=== PATIENT | female | born 1985 | race African-American/Black ===

== ENCOUNTER 2021-08-26 08:33 | Day surgery (SDC) | payer OTHER ==
[~2021-08-26] VITALS: Ht 165.1 cm; Wt 101.7 kg
[~2021-08-26 08:33] MED LIST: ACETAMINOPHEN 650 MG SUPP PR ONE; CLAR5TAB11 PO; CVS1CAP2 PO; CVS5000S2 PO; L-LY500T14 PO; LIDOCAINE 1% MDV 20ML VIAL SQ PRN; LR 1,000 ML IV ONE; VITMTA PO
[2021-08-26 09:17] LABS: HEMATOCRIT 39.9 % (36.0-47.0); HEMOGLOBIN 13.4 g/dl (12.0-15.5); MEAN CORPUSCULAR HEMOGLOBIN 31.8 pg (27.0-33.0); MEAN CORPUSCULAR HGB CONC 33.6 g/dl (32.0-36.5); MEAN CORPUSCULAR VOLUME 94.8 fl (80.0-96.0); PLATELET COUNT, AUTOMATED 376 10^3/uL (150-450); RED BLOOD COUNT 4.21 10^6/uL (4.00-5.40); WHITE BLOOD COUNT 6.7 10^3/uL (4.0-10.0)
[2021-08-26 09:45] LABS: BLOOD UREA NITROGEN 16 MG/DL (7-18); CALCIUM LEVEL 9.3 MG/DL (8.5-10.1); CARBON DIOXIDE LEVEL 26 MEQ/L (21-32); CHLORIDE LEVEL 109 MEQ/L (98-107); CREATININE FOR GFR 0.72 MG/DL (0.55-1.30); GLOMERULAR FILTRATION RATE > 60.0 (>60); GLUCOSE, FASTING 89 MG/DL (70-100); POTASSIUM SERUM 4.1 MEQ/L (3.5-5.1); SODIUM LEVEL 138 MEQ/L (136-145)
[2021-08-26] MEDS ORDERED: fentaNYL 100 MCG/2 ML INJECTION As Ordered ONE (09:48)
[2021-08-26] MEDS ORDERED: MIDAZOLAM INJ 2MG/2ML VIAL (J2250 PER 1MG) As Ordered ONE (09:48)
[2021-08-26] MEDS ORDERED: propofoL 200 MG/20 ML VIAL As Ordered ONE (09:48)
[2021-08-26] MEDS ORDERED: ONDANSETRON 4MG/2ML VIAL As Ordered ONE (09:48)
[2021-08-26] MEDS ORDERED: LIDOCAINE 2% 100MG/5ML SDV (FOR ANES.) As Ordered ONE (09:48)
[2021-08-26] MEDS ORDERED: SILVER NITRATE APPLICATOR As Ordered ONE (10:48)
[2021-08-26] MEDS ORDERED: dexameTHASONE 4 MG/ML 1ML VIAL (J1100 PER 1MG) As Ordered ONE (11:21)
[2021-08-26] MEDS ORDERED: ACETAMINOPHEN 650 MG SUPP As Ordered ONE (11:22)
[2021-08-26] MEDS ORDERED: KETOROLAC 60MG 2ML VIAL As Ordered ONE (11:22)
[2021-08-26] MEDS ORDERED: ONDANSETRON 4MG/2ML VIAL IV PRN (12:10)
[2021-08-26] MEDS ORDERED: fentaNYL 100 MCG/2 ML INJECTION IV PRN (12:10)
[2021-08-26] MEDS ORDERED: LR 1,000 ML IV SCH (12:10)
[2021-08-26] MEDS: oxyCODONE 5MG TAB PO PRN ×2 (12:13→12:51)
[2021-08-26 13:16] VITALS: BP 121/73
== END 2021-08-26 13:54 | disposition home or self-care (01) ==
LOC: M SDC 08:33
PROVIDERS: ATTEND Obstetrics & Gynecology
DX: N93.9 Abnormal uterine and vaginal bleeding, unspecified (principal); N84.0 Polyp of corpus uteri
CPT/HCPCS: 36415; 58558; 80048; 84702; 85027; 88305; J1100; J1885; J2250; J2405; J3010

== ENCOUNTER 2022-01-30 07:14 | Emergency (ER) | payer OTHER ==
[~2022-01-30] VITALS: Ht 165.1 cm; Wt 97.4 kg
[2022-01-30 07:14] VITALS: BP 137/87
[~2022-01-30 07:14] MED LIST changes: -ACETAMINOPHEN 650 MG SUPP PR ONE; -LIDOCAINE 1% MDV 20ML VIAL SQ PRN; -LR 1,000 ML IV ONE
[2022-01-30] MEDS ORDERED: LIDOCAINE 5% (LIDODERM) PATCH TD ONE (08:25)
[2022-01-30] MEDS ORDERED: KETOROLAC 30 MG/ML 1ML VIAL IM ONE (08:25)
[2022-01-30] MEDS ORDERED: LIDO5DIS41 TOP (09:50)
[2022-01-30] MEDS ORDERED: METH-1164 PO (09:53)
[2022-01-30] MEDS ORDERED: **NOTE PATIENT COMMENT** MISC XX SCH (21:00)
== END 2022-01-30 10:10 | disposition home or self-care (01) ==
LOC: M ED 07:14
DX: M54.50 Low back pain, unspecified (principal); M54.2 Cervicalgia; V49.40XA Driver injured in collision with unspecified motor vehicles in traffic accident, initial encounter; Y92.410 Unspecified street and highway as the place of occurrence of the external cause; Y93.9 Activity, unspecified; Y99.9 Unspecified external cause status; Z79.899 Other long term (current) drug therapy
CPT/HCPCS: 72110; 72125; 84702; 99283; J1885

== ENCOUNTER → 2022-09-18 | Outpatient (CLI) | payer OTHER ==
[~2022-09-18] MED LIST changes: +LIDO5DIS41 TOP; +METH-1164 PO
== END ==
LOC: M PLARAD 09:09
PROVIDERS: ATTEND Podiatrist Foot & Ankle Surgery
DX: R22.42 Localized swelling, mass and lump, left lower limb (principal); M72.2 Plantar fascial fibromatosis